=== PATIENT | male | born 1990 | race African-American/Black ===

== ENCOUNTER 2024-05-04 13:46 | Emergency (ER) | payer OTHER, SELFPAY | END 2024-05-04 15:32 | disposition left against medical advice (07) | LOC: CSHERS 13:46 | DX: Z53.21 Procedure and treatment not carried out due to patient leaving prior to being seen by health care provider (principal) ==

== ENCOUNTER 2024-05-08 01:07 | Emergency (ER) | payer SELFPAY ==
[2024-05-08 02:32] LABS: #Basophils 0.04 10x3/uL (0.0-0.2); #Eosinphils 0.16 10x3/uL (0.0-0.5); #Monocytes 0.55 10x3/uL (0.0-1.1); #Neutrophils 2.98 10x3/uL (1.5-8.4); %Basophils 0.6 % (0.0-2.0); %Eosinophils 2.5 % (0.0-6.0); %Lymphocytes 42.6 % (18.0-47.0); %Monocytes 8.4 % (0.0-10.0); %Neutrophils 45.7 % (40.0-75.0); Hematocrit 36.8 % (38.8-50.0); Hemoglobin 12.9 g/dL (13.5-17.5); Mean Corpuscular HGB CONC 35.1 g/dL (32.0-36.0); Mean Corpuscular Volume 82.7 fL (81.2-95.1); Mean Platelet Volume 9.7 fL (7.4-10.4); Platelet Count 229 10x3/uL (150-450); RBC Distribution Width 12.6 % (11.5-14.5); Red Blood Cell (RBC) Count 4.45 10x6/uL (4.32-5.72); White Blood Cell (WBC) Count 6.5 10x3/uL (3.5-10.5)
[2024-05-08 02:46] LABS: ALT (SGPT) 19 U/L (8-55); AST (SGOT) 33 U/L (5-34); Albumin 3.9 g/dL (3.5-5.0); Alkaline Phosphatase 68 U/L (40-110); Anion Gap 12 mmol/L (10-20); BUN (Urea Nitrogen) 21 mg/dL (8.9-20.6); Bilirubin, Total 0.6 mg/dL (0.2-1.2); Calc. Creatinine Clearance 0 mL/min (70-130); Calcium 8.5 mg/dL (7.8-10.44); Carbon Dioxide 24 mmol/L (22-29); Chloride 108 mmol/L (98-107); Estimated GFR 99; Globulin 2.8 g/dL (2.4-3.5); Glucose 99 mg/dL (70-105); Potassium 3.9 mmol/L (3.5-5.1); Protein, Total 6.7 g/dL (6.0-8.3); Sodium 140 mmol/L (136-145)
== END 2024-05-08 04:10 | disposition home or self-care (01) ==
LOC: CSHERS 01:07
DX: R55 Syncope and collapse (principal); F17.290 Nicotine dependence, other tobacco product, uncomplicated
CPT/HCPCS: 80053; 85025; 93005; 96360; 96361

== ENCOUNTER 2024-08-12 00:06 | Emergency (ER) | payer SELFPAY ==
[2024-08-12] MEDS ORDERED: Sterile Water 10 ML VIAL FS SCH (01:45)
[2024-08-12] MEDS ORDERED: OLANZapine 10 MG VIAL IM SCH (01:45)
[2024-08-12] MEDS ORDERED: OLANZapine 2.5 MG TAB ONE (01:50)
== END 2024-08-12 02:21 | disposition home or self-care (01) ==
LOC: CSHERS 00:06 → EEVIPCON 00:06 → CSHERS 02:21
DX: Z76.0 Encounter for issue of repeat prescription (principal)
CPT/HCPCS: 99284

== ENCOUNTER 2025-04-22 09:18 | Emergency (ER) | payer SELFPAY | END 2025-04-22 10:00 | disposition home or self-care (01) | LOC: CSHERS 09:18 | DX: M70.21 Olecranon bursitis, right elbow (principal); I10 Essential (primary) hypertension; F17.290 Nicotine dependence, other tobacco product, uncomplicated | CPT/HCPCS: 99283 ==